=== PATIENT | male | born 1950 | race Caucasian/White ===

== ENCOUNTER 2018-10-27 14:51 | Outpatient (CLI) | payer MEDICARE ==
[~2018-10-27] VITALS: Ht 170.2 cm; Wt 83.9 kg
[2018-10-27] MEDS ORDERED: ATOR40TA70 PO (15:40)
[2018-10-27] MEDS ORDERED: LOSA50TA63 PO (15:40)
[2018-10-27] MEDS ORDERED: METF-397 PO (15:40)
== END 2018-10-27 15:41 | disposition home or self-care (01) ==
LOC: PREOP 14:51
PROVIDERS: ATTEND Surgery
DX: Z01.818 Encounter for other preprocedural examination (principal)

== ENCOUNTER 2018-10-31 11:55 | Day surgery (SDC) | payer MEDICARE ==
[~2018-10-31] VITALS: Ht 170.2 cm; Wt 83.9 kg
[2018-10-31] VITALS (8 sets, daily range): BP systolic 115–135; BP diastolic 52–90
[~2018-10-31 11:55] MED LIST: ATOR40TA70 PO; LOSA50TA63 PO; METF-397 PO
[2018-10-31] MEDS ORDERED: LACTATED RINGERS 1,000 ML IV STA (11:57)
[2018-10-31] MEDS ORDERED: LACTATED RINGERS 1,000 ML IV ONE (12:04)
--- NOTE | 2018-10-31 12:19 | Progress Note-Pre Operative ---
Pre-Operative Progress Note H&P Reviewed The H&P was reviewed, patient examined and no changes noted. Time Seen by Provider: 12:16 Date H&P Reviewed: Oct 31, 2018 Time H&P Reviewed: 12:17 Pre-Operative Diagnosis: screening colonoscopy HOWARD BUSTAMANTE DO Oct 31, 2018 12:19
[2018-10-31] MEDS ORDERED: fentaNYL INJECTION 100 MCG/2 ML AMP ONE (12:36)
[2018-10-31] MEDS ORDERED: proPOfol 200 MG/20 ML (DIPRIVAN) VIAL IV ONE (12:36)
[2018-10-31] MEDS ORDERED: MIDAZOLAM 2 MG/2 ML (VERSED) VIAL ONE (12:37)
[2018-10-31] MEDS ORDERED: PROPOFOL INJECTION 50 ML IV ONE (12:39)
--- NOTE | 2018-10-31 13:11 | Progress Note-Post Operative ---
Post-Operative Progess Note Surgeon (s)/Fabrics And Material Cutter (s) Surgeon HOWARD BUSTAMANTE DO Fabrics And Material Cutter: none Pre-Operative Diagnosis screening colonoscopy Post-Operative Diagnosis Colon Polyp Diverticula Internal Hemorrhoids Procedure & Operative Findings Date of Procedure 10/31/18 Procedure Performed/Findings Colon with hot bx Anesthesia Type IV sedation by INSIDE SALES Estimated Blood Loss Estimated blood loss (mL): scant Specimens/Packing Specimens Removed Tranverse colon polyp HOWARD BUSTAMANTE DO Oct 31, 2018 13:11
--- NOTE | 2018-10-31 13:17 | Endoscopy Discharge Instruct ---
Endo Procedure/Findings Findings 1.: Polyp 2.: Diverticulosis 3.: Internal Hemorrhoids Discharge Instructions - Activity: You might feel a little sleepy until tomorrow. This is due to the medicine you received to relax you. Until tomorrow, you should: NOT drive a car, operate machinery or power tools. NOT drink any alcoholic beverages. NOT make any important decisions or sign importortant papers. Do not return to work until tomorrow, unless otherwise instructed. Resume previous activities tomorrow. Diet: Start by taking liquids. If you tolerate liquids, advance to solid food. make an appointment for 2 weeks Instructions: 1.: Colonscopy in 5 years Notify Physician - If you experience excessive bleeding, unusual abdominal pain, fever, or chest pain, contact your doctor immediately. Follow-Up: - I have received and understand the above instructions and will call my doctor if I have any further questions. Patient Signature Date Nurse Signature Other (Relationship) HOWARD BUSTAMANTE DO Oct 31, 2018 13:17
--- OUTSIDE RECORDS SUMMARY | 2018-10-31 22:48 | XMS REPORT | Continuity of Care Document ---
Author Organization Unknown Address Unknown Allergies There is no data. Medications There is no data. Problems There is no data. Procedures There is no data. Results Test Result Range CBC - 08/31/18 11:59 WHITE BLOOD CELL COUNT 7.7 Thousand/uL 3.8-10.8 RED BLOOD CELL COUNT 5.11 Million/uL 4.20-5.80 HEMOGLOBIN 15.2 g/dL 13.2-17.1 HEMATOCRIT 46.4 % 38.5-50.0 MCV 90.8 fL 80.0-100.0 MCH 29.7 pg 27.0-33.0 MCHC 32.8 g/dL 32.0-36.0 RDW 12.6 % 11.0-15.0 PLATELET COUNT 221 Thousand/uL 140-400 MPV 10.6 fL 7.5-12.5 ABSOLUTE NEUTROPHILS 4689 cells/uL 5829-7599 ABSOLUTE LYMPHOCYTES 2179 cells/uL 850-3900 ABSOLUTE MONOCYTES 547 cells/uL 200-950 ABSOLUTE EOSINOPHILS 239 cells/uL 15-500 ABSOLUTE BASOPHILS 46 cells/uL 0-200 NEUTROPHILS 60.9 % NRG LYMPHOCYTES 28.3 % NRG MONOCYTES 7.1 % NRG EOSINOPHILS 3.1 % NRG BASOPHILS 0.6 % NRG TSH - 08/31/18 11:59 TSH 1.77 mIU/L 0.40-4.50 Encounters ACCT No. Visit Date/Time Discharge Status Pt. Type Provider Facility Loc./Unit Complaint [id number] 10/10/2018 08:00:00 10/10/2018 23:59:59 CLS Outpatient LEELA CORTES [facility], [place] [id number] 08/31/2018 11:00:00 Document Registration
--- NOTE | 2018-11-01 23:14 | OPERATIVE REPORT ---
DATE OF SERVICE: 10/31/2018 PREOPERATIVE DIAGNOSIS: Screening colonoscopy. POSTOPERATIVE DIAGNOSES: 1. Colon polyp. 2. Diverticula. 3. Internal hemorrhoids. PROCEDURE: Colonoscopy with hot biopsy. SURGEON: Ha Lobo D.O. QUALITY PROJECT MANAGER: None. ANESTHESIA: IV sedation by WEB CONTENT PRODUCER. SPECIMEN: Polyps from the transverse colon. BLOOD LOSS: Scant. FLUIDS: Per anesthesia. POSTOPERATIVE CONDITION: Stable. INDICATION FOR PROCEDURE: The patient is a 68-year-old male, who needed a screening colonoscopy. FINDINGS: The patient had a polyp in the transverse colon. He also had some diverticula noted and some internal hemorrhoids, probably grade I to II. PROCEDURE NOTE: After informed consent was obtained, the patient was brought to the endoscopy suite and placed in the bed in left lateral decubitus position. He was administered IV sedation by the WEB CONTENT PRODUCER, who then monitored his vitals the entire time, heart rate, blood pressure and pulse ox and the scope was inserted, pushed in, on the way in, noted some diverticula, took picture of this and then in the transverse colon, saw a polyp, elected to do a hot biopsy of this to remove it, took two bites to remove it completely, then continued all the way down to the cecum, took a picture of appendiceal orifice, noted the ileocecal valve and then slowly withdrew the scope, insufflating to look circumferentially at the arboleda, looking at the cecum up the ascending colon to the hepatic flexure, then down the transverse colon, the splenic flexure, into the descending colon. Throughout the descending colon and sigmoid colon, saw some diverticula and then continued to pull this back into the rectum, retroflexed in the rectal vault, saw some minimal internal hemorrhoids, took a picture of this and then removed the scope. The patient tolerated the procedure and recovered in endoscopy suite. Job ID: [id number] DocumentID: [id number] Dictated Date: 11/01/2018 17:28:11 [place] Machine Operator Date: 11/01/2018 23:12:31 Dictated By: DO YONATHAN HINOJOSA
== END 2018-10-31 14:10 | disposition home or self-care (01) ==
LOC: ENDO 11:55
PROVIDERS: ATTEND Surgery
DX: Z12.11 Encounter for screening for malignant neoplasm of colon (principal); D12.3 Benign neoplasm of transverse colon; K57.30 Diverticulosis of large intestine without perforation or abscess without bleeding; K64.8 Other hemorrhoids; E11.9 Type 2 diabetes mellitus without complications; Z87.19 Personal history of other diseases of the digestive system
CPT/HCPCS: 82962; 88305